=== PATIENT | female | born 1930 | race Caucasian/White ===

== ENCOUNTER → 2016-11-23 | Outpatient (CLI) | payer MEDICARE, BC ==
[~2016-11-23] MED LIST: AMARYL1 MG PO; ANTIVERT-DPS25 MG PO; ASCORBIC ACID500 MG PO; CARAFATE DPS1 GM PO; CYANOCOBAL1000 MCG/1 SQ; ECOTRIN81 MG PO; EXELON1 EAC2 TP; FEOSOL-DPS325 MG PO; FOSAMAX70 MG PO; IMDUR DPS30 MG PO; LASIX DPS40 MG PO; LEVAQUIN DPS750 MG PO; LIPITOR DPS10 MG PO; LOPRESSOR DPS12.5 MG PO; MIRALAX PACKET17 GM PO; MULTAQ400 MG PO; NAMENDA XR28 MG PO; PEPCID DPS20 MG PO; SYMBICORT160 MCG/6 IH; SYNTHROID DPS0.1 MG PO; TYLENOL DPS325 MG PO; VITAMIN D50000 UNI1 PO; XALATAN2.5 ML OU; XARELTO20 MG PO
== END | disposition home or self-care (01) ==
LOC: RAD.S 09:49
DX: R53.1 Weakness (principal); R20.0 Anesthesia of skin; M51.36 Other intervertebral disc degeneration, lumbar region; M47.896 Other spondylosis, lumbar region